=== PATIENT | female | born 1960 | race Caucasian/White ===

== ENCOUNTER 2016-10-05 12:58 | Emergency (ER) | payer MEDICAID ==
[2016-10-05] MEDS ORDERED: Sodium Chloride 0.9% 10 ML Syringe FLUSH PRN (15:53)
[2016-10-05] MEDS ORDERED: Aspirin 81 MG Tab.Chew PO ONE (15:53)
--- NOTE | 2016-10-05 16:06 | EDM.PDOC ---
ED HPI GENERAL MEDICAL PROBLEM - General Chief Complaint: Respiratory Problem Stated Complaint: TROUBLE BREATHING IN, PAIN Time Seen by Provider: 10/05/16 15:50 Source of Information: Reports: Patient, RN Notes Reviewed History Limitations: Reports: No Limitations - History of Present Illness INITIAL COMMENTS - FREE TEXT/NARRATIVE: Patient arrives here by POV with complaint of left lower chest wall pain that began yesterday and is much worse today. Pain is worse with lying supine and with deep breathing. Patient states that she had an abnormal chest x-ray a couple of weeks ago followed by a CT scan, which had some inflammatory changes but no sign of malignancy. Patient states that a couple of weeks ago she had a long car drive approximately [address] and then was only out of town 1 day and had a return drive the following day. Upon completing the long car trip she had right calf pain and swelling, which is now improved but now she has developed chest pain and was worried about problems with her heart or possible pulmonary embolism. Denies cough, fever, chills or wheezing. Location: Reports: Chest Quality: Reports: Ache Severity: Severe Improves with: Reports: None Worsens with: Reports: None Associated Symptoms: Reports: No Other Symptoms Left Chest Pain Score (Numeric/FACES): 2 - Related Data Allergies Allergy/AdvReac Type Severity Reaction Status Date / Time No Known Allergies Allergy Verified 10/05/16 15:45 Home Meds: Home Meds Chlorthalidone [Chlorthalidone] 25 mg PO DAILY 10/05/16 [History] Levothyroxine 75 mcg PO DAILY 10/05/16 [History] amLODIPine [Norvasc] 10/05/16 [History] ED ROS GENERAL - Review of Systems Review Of Systems: ROS reveals no pertinent complaints other than HPI. ED EXAM, GENERAL - Physical Exam Exam: See Below Exam Limited By: No Limitations General Appearance: Alert, WD/WN, No Apparent Distress Head: Atraumatic, Normocephalic Neck: Normal Inspection, Supple, Non-Tender, Full Range of Motion Respiratory/Chest: Other (Tender to palpation at left anterior lower chest. ) Cardiovascular: Normal Peripheral Pulses, Regular Rate, Rhythm, No Edema, No Gallop, No JVD, No Murmur, No Rub GI/Abdominal: Normal Bowel Sounds, Soft, Non-Tender, No Organomegaly, No Distention, No Abnormal Bruit, No Mass (Female) Exam: Deferred Rectal (Female) Exam: Deferred Back Exam: Normal Inspection, Full Range of Motion, NT Extremities: Normal Inspection, Normal Range of Motion, Non-Tender, Normal Capillary Refill, No Pedal Edema Neurological: Alert, Oriented, CN II-XII Intact, Normal Cognition, Normal Gait, Normal Reflexes, No Motor/Sensory Deficits Psychiatric: Normal Affect, Normal Mood Skin Exam: Warm, Dry, Intact, Normal Color, No Rash EKG INTERPRETATION EKG Date: 10/05/16 Time: 15:56 Rhythm: Other (sinus rhythm) Rate (Beats/Min): 74 [place]: Normal P-Wave: Present QRS: Normal ST-T: Other (borderline T abnormalities, inferior leads.) QT: Normal Course - Vital Signs Last Recorded V/S: Last Vital Signs Temp 36.7 C 10/05/16 15:40 Pulse 85 10/05/16 15:40 Resp 16 10/05/16 15:40 BP 161/86 H 10/05/16 15:40 Pulse Ox 99 10/05/16 15:40 - Orders/Labs/Meds Orders: Active Orders 24 hr Category Date Time Status EKG 12 Lead [EKG Documentation Completion] [] STAT Care 10/05/16 15:53 Active Peripheral IV Care [RC] . DIRECTED Care 10/05/16 15:53 Active Sodium Chloride 0.9% [Saline Flush] Med 10/05/16 15:53 Active 10 ml FLUSH ASDIRECTED PRN Peripheral IV Insertion Adult [OM.PC] Stat Oth 10/05/16 15:53 Ordered Medication Orders Sodium Chloride (Saline Flush) 10 ml FLUSH ASDIRECTED PRN PRN Reason: Keep Vein Open Last Admin: 10/05/16 17:51 Dose: 10 ml Labs: Laboratory Tests 10/05/16 10/05/16 10/05/16 Range/Units 16:09 16:09 16:09 WBC 8.8 (5.0-10.0) 10^3/uL RBC 4.89 (4.2-5.4) 10^6/uL Hgb 15.3 (12.0-16.0) g/dL Hct 45.2 (37.0-47.0) % MCV 92.4 (80-100) fL MCH 31.3 (27.0-34.0) pg MCHC 33.8 (33.0-35.0) g/dL Plt Count 329 (150-450) 10^3/uL Neut % (Auto) 54.1 (42.2-75.2) % Lymph % (Auto) 32.5 (20.5-50.1) % Yates % (Auto) 8.0 (2-8) % Eos % (Auto) 4.9 H (1.0-3.0) % Baso % (Auto) 0.5 (0.0-1.0) % D-Dimer, Quantitative 125 (0-400) ng/mL Sodium 139 (135-145) mmol/L Potassium 3.8 (3.6-5.0) mmol/L Chloride 104 (101-111) mmol/L Carbon Dioxide 22.0 (21.0-31.0) mmol/L Anion Gap 16.8 BUN 15 (7-18) mg/dL Creatinine 0.7 (0.6-1.3) mg/dL Est Cr Clr Drug Dosing 79.34 mL/min Estimated GFR (MDRD) > 60 BUN/Creatinine Ratio 21.42 Glucose 88 (74-105) mg/dL Calcium 9.4 (8.4-10.2) mg/dl Total Bilirubin 0.5 (0.2-1.0) mg/dL AST 22 (10-42) IU/L ALT 18 (10-60) IU/L Alkaline Phosphatase 91 (42-121) IU/L Troponin I < 0.02 (0.00-0.02) ng/ml Total Protein 7.3 (6.7-8.2) g/dl Albumin 4.3 (3.2-5.5) g/dl Globulin 3.0 Albumin/Globulin Ratio 1.43 Amylase 55 (28-100) U/L Lipase 21 L (22-51) U/L Urine Color (YELLOW) Urine Appearance (CLEAR) Urine pH (5.0-9.0) Ur Specific [place] (1.005-1.030) Urine Protein (NEGATIVE) Urine Glucose (UA) (NEGATIVE) Urine Ketones (NEGATIVE) Urine Occult Blood (NEGATIVE) Urine Nitrite (NEGATIVE) Urine Bilirubin (NEGATIVE) Urine Urobilinogen (0.2-1.0) mg/dL Ur Leukocyte Esterase (NEGATIVE) Urine RBC /HPF Urine WBC (0-5/HPF) /HPF Ur Epithelial Cells /HPF Amorphous Sediment (0/HPF) /HPF Urine Bacteria (0-FEW/HPF) /HPF Urine Mucus /LPF 10/05/16 Range/Units 16:14 WBC (5.0-10.0) 10^3/uL RBC (4.2-5.4) 10^6/uL Hgb (12.0-16.0) g/dL Hct (37.0-47.0) % MCV (80-100) fL MCH (27.0-34.0) pg MCHC (33.0-35.0) g/dL Plt Count (150-450) 10^3/uL Neut % (Auto) (42.2-75.2) % Lymph % (Auto) (20.5-50.1) % Yates % (Auto) (2-8) % Eos % (Auto) (1.0-3.0) % Baso % (Auto) (0.0-1.0) % D-Dimer, Quantitative (0-400) ng/mL Sodium (135-145) mmol/L Potassium (3.6-5.0) mmol/L Chloride (101-111) mmol/L Carbon Dioxide (21.0-31.0) mmol/L Anion Gap BUN (7-18) mg/dL Creatinine (0.6-1.3) mg/dL Est Cr Clr Drug Dosing mL/min Estimated GFR (MDRD) BUN/Creatinine Ratio Glucose (74-105) mg/dL Calcium (8.4-10.2) mg/dl Total Bilirubin (0.2-1.0) mg/dL AST (10-42) IU/L ALT (10-60) IU/L Alkaline Phosphatase (42-121) IU/L Troponin I (0.00-0.02) ng/ml Total Protein (6.7-8.2) g/dl Albumin (3.2-5.5) g/dl Globulin Albumin/Globulin Ratio Amylase (28-100) U/L Lipase (22-51) U/L Urine Color Yellow (YELLOW) Urine Appearance Slightly cloudy (CLEAR) Urine pH 5.5 (5.0-9.0) Ur Specific [place] 1.015 (1.005-1.030) Urine Protein Negative (NEGATIVE) Urine Glucose (UA) Negative (NEGATIVE) Urine Ketones Negative (NEGATIVE) Urine Occult Blood Negative (NEGATIVE) Urine Nitrite Negative (NEGATIVE) Urine Bilirubin Negative (NEGATIVE) Urine Urobilinogen 0.2 (0.2-1.0) mg/dL Ur Leukocyte Esterase Negative (NEGATIVE) Urine RBC 0-5 /HPF Urine WBC 0-5 (0-5/HPF) /HPF Ur Epithelial Cells Moderate H /HPF Amorphous Sediment Rare (0/HPF) /HPF Urine Bacteria Few (0-FEW/HPF) /HPF Urine Mucus Rare /LPF Meds: Medications Generic Name Dose Route Start Last Admin Trade Name Freq PRN Reason Stop Dose Admin Sodium Chloride 10 ml 10/05/16 15:53 10/05/16 17:51 Saline Flush FLUSH 10 ml ASDIRECTED PRN Administration Keep Vein Open Discontinued Medications Generic Name Dose Route Start Last Admin Trade Name Freq PRN Reason Stop Dose Admin Aspirin 324 mg 10/05/16 15:53 10/05/16 16:42 Aspirin PO 10/05/16 15:54 324 mg ONETIME ONE Administration Azithromycin 500 mg 10/05/16 17:37 10/05/16 17:53 Zithromax PO 10/05/16 17:38 500 mg ONETIME ONE Administration Ceftriaxone Sodium 1 gm/ 50 mls @ 100 mls/hr 10/05/16 17:36 10/05/16 17:53 Sodium Chloride IV 10/05/16 18:05 100 mls/hr ONETIME ONE Administration Methylprednisolone Sodium Succinate 125 mg 10/05/16 17:36 10/05/16 17:50 Solu-Medrol IVPUSH 10/05/16 17:37 125 mg ONETIME ONE Administration - Radiology Interpretation Free Text/Narrative:: Chest x-ray: No lung mass, hilar lymphadenopathy or other focal lobar consolidation No pneumothorax. See rad report. Departure - Departure Time of Disposition: 18:27 Disposition: Home, Self-Care 01 Condition: Fair Clinical Impression: Pneumonitis, Pleurodynia - Discharge Information Instructions: Pneumonitis, Pleurodynia Forms: ED Department Discharge Additional Instructions: RX: Zithromax 500mg. RX: Prednisone 20mg. Follow up in clinic this week with your primary doctor. Return to ER if worse. - My Orders Last 24 Hours: My Active Orders 10/05/16 15:53 EKG 12 Lead [EKG Documentation Completion] [RC] STAT Peripheral IV Care [RC] . DIRECTED Sodium Chloride 0.9% [Saline Flush] 10 ml FLUSH ASDIRECTED PRN Peripheral IV Insertion Adult [OM.PC] Stat - Assessment/Plan Last 24 Hours: My Active Orders 10/05/16 15:53 EKG 12 Lead [EKG Documentation Completion] [RC] STAT Peripheral IV Care [RC] . DIRECTED Sodium Chloride 0.9% [Saline Flush] 10 ml FLUSH ASDIRECTED PRN Peripheral IV Insertion Adult [OM.PC] Stat
[2016-10-05 16:37] LABS: CHLORIDE,CL 104 mmol/L (101-111); SODIUM,NA 139 mmol/L (135-145)
--- NOTE | 2016-10-05 16:42 | CR ---
Clinical history: 55-year-old female emergency department with chest pain. Interpretation: Abnormal. Asymmetric patchy lingular and left lower lobe atelectasis/infiltrate i.e. pneumonic like consolidat ion, increased since CT scan chest 05 October 2016. Developing pneumonitis? Technique (poor inspiratio n)? Less than optimal inspiratory effort but normal cardiac silhouette without cephalization of flow or signs of alveolar edema. No lung mass, hilar lymphadenopathy or other focal lobar consolidation. No pneumothorax.
[2016-10-05] MEDS ORDERED: methylPREDNISolone Sodium Succinate 125 MG/2 ML SDV IVPUSH ONE (17:36)
[2016-10-05] MEDS ORDERED: cefTRIAXone 1 GM in Sodium Chloride 0.9% 50 ML IV ONE (17:36)
[2016-10-05] MEDS ORDERED: Azithromycin 250 MG Tab PO ONE (17:37)
[2016-10-05 18:51] VITALS: BP 146/94
--- NOTE | 2016-10-07 11:17 | EKG ---
10/05/2016- VIC JORDAN - EKG per my reading shows sinus rhythm at a rate of [address] changes. [facility] /[id number]
== END 2016-10-05 18:51 | disposition home or self-care (01) ==
LOC: DL.ED 12:58
DX: J18.9 Pneumonia, unspecified organism (principal); R07.81 Pleurodynia
CPT/HCPCS: 36415; 71020; 80053; 81001; 82150; 83690; 84484; 85025; 85379; 93005; 96365; 96375; 99285; A9270; J0696; J2930; J7050

== ENCOUNTER 2017-05-17 18:38 | Emergency (ER) | payer MEDICAID ==
[2017-05-17 19:25] VITALS: BP 146/93
--- NOTE | 2017-05-17 20:37 | EDM.PDOC ---
ED HPI GENERAL MEDICAL PROBLEM - General Chief Complaint: Skin Complaint Stated Complaint: [id number] HIVES ALL OVER HEAD Time Seen by Provider: 05/17/17 20:28 Source of Information: Reports: Patient History Limitations: Reports: No Limitations - History of Present Illness INITIAL COMMENTS - FREE TEXT/NARRATIVE: itching on scalp wednesday, back on wednesday, tonight behind ears, no new soaps lotions, etc. 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 below) - Related Data Allergies Allergy/AdvReac Type Severity Reaction Status Date / Time Penicillins Allergy Hives Verified 05/17/17 19:30 Home Meds: Home Meds Levothyroxine 75 mcg PO DAILY 10/05/16 [History] Past Medical History HEENT History: Reports: Impaired Vision Cardiovascular History: Reports: Hypertension, Other (See Below) Other Cardiovascular History: not taking meds at this time, stress related Respiratory History: Reports: Other (See Below) Other Respiratory History: seasonal allergies Gastrointestinal History: Reports: Cholelithiasis 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: Reports: Polycystic Ovaries, Musculoskeletal History: Reports: Arthritis, Fracture Endocrine/Metabolic History: Reports: Hypothyroidism - Past Surgical History HEENT Surgical History: Reports: Tonsillectomy GI Surgical History: Reports: Cholecystectomy Female Surgical History: Reports: Breast Biopsy, Section, Oophorectomy, Other (See Below) Other Female Surgeries/Procedures: uterine fibroid, right ovary removed Social & Family History - Tobacco Use Smoking Status *Q: Never Smoker Second Hand Smoke Exposure: No - Caffeine Use Caffeine Use: Reports: Coffee - Recreational Drug Use Recreational Drug Use: No ED ROS GENERAL - Review of Systems Review Of Systems: ROS reveals no pertinent complaints other than HPI. ED EXAM, SKIN/RASH Exam: See Below Exam Limited By: No Limitations General Appearance: Alert, No Apparent Distress Eye Exam: Bilateral Eye: EOMI Ears: Normal External Exam Nose: Normal Inspection. No: Nasal Swelling, Nasal Drainage Throat/Mouth: Normal Inspection, Normal Lips, No Airway Compromise Respiratory/Chest: No Respiratory Distress, Lungs Clear, Normal Breath Sounds Cardiovascular: Normal Peripheral Pulses, Regular Rate, Rhythm Extremities: Normal Inspection Neurological: Alert, Oriented Psychiatric: Normal Affect, Normal Mood Skin: Warm, Dry, Erythema ( mild generalized redness to posterior scalp, patchy left aprietal, redness beind bilateral ears.) Course - Vital Signs Last Recorded V/S: Last Vital Signs Temp 98.1 F 05/17/17 19:23 Pulse 102 H 05/17/17 19:23 Resp 16 05/17/17 19:23 BP 146/93 H 05/17/17 19:23 Pulse Ox 94 L 05/17/17 19:23 - Orders/Labs/Meds Meds: Medications Discontinued Medications Generic Name Dose Route Start Last Admin Trade Name Bernie PRN Reason Stop Dose Admin Hydroxyzine HCl 25 mg 05/17/17 20:40 05/17/17 20:48 Atarax PO 05/17/17 20:41 25 mg ONETIME ONE Administration Prednisone 20 mg 05/17/17 20:40 05/17/17 20:48 Prednisone PO 05/17/17 20:41 20 mg ONETIME ONE Administration Departure - Departure Time of Disposition: 20:37 Disposition: Home, Self-Care 01 Condition: Fair Clinical Impression: Atopic dermatitis Qualifiers: Atopic dermatitis type: unspecified Qualified Code(s): L20.9 - Atopic dermatitis, unspecified - Discharge Information Instructions: Hives, [id number] Forms: ED Department Discharge Additional Instructions: hydroxyzine 25mg one every 6 hours as needed for itching #20 Prednisone 10mg x 3 day, 5mg x 3 days OTC Pepcid (Famotadine) 20mg daily for one week then as needed, Follow up if not improving or breathing difficulty
[2017-05-17] MEDS ORDERED: hydrOXYzine HCl 25 MG Tab PO ONE (20:40)
[2017-05-17] MEDS ORDERED: predniSONE 20 MG Tab PO ONE (20:40)
== END 2017-05-17 20:50 | disposition home or self-care (01) ==
LOC: DL.ED 18:38
DX: L20.9 Atopic dermatitis, unspecified (principal); I10 Essential (primary) hypertension; E03.9 Hypothyroidism, unspecified; Z88.0 Allergy status to penicillin; Z79.899 Other long term (current) drug therapy
CPT/HCPCS: 99282; A9270

== ENCOUNTER 2021-02-07 08:15 | Emergency (ER) | payer MEDICAID ==
[2021-02-07 08:24] VITALS: BP 140/77; PULSE 80
--- NOTE | 2021-02-07 09:36 | CR ---
PROCEDURE INFORMATION: Exam: XR Left Femur Exam date and time: 02/07/2021 8:41 AM Age: 60 years old Clinical indication: Pain; Hip and thigh; Left; Additional info: Injury, pain TECHNIQUE: Imaging protocol: XR Left femur. Views: 2 views. COMPARISON: No relevant prior studies available. FINDINGS: Bones/joints: Yoon-Stieda suspected at the medial knee. No acute fracture. Soft tissues: Unremarkable. IMPRESSION: No acute findings.
[2021-02-07] MEDS ORDERED: Acetaminophen/HYDROcodone 325-10 MG Tab PO ONE ×2 (10:14→12:02)
--- NOTE | 2021-02-07 10:22 | EDM.PDOC ---
ED HPI GENERAL MEDICAL PROBLEM - General Chief Complaint: Lower Extremity Injury/Pain Stated Complaint: AMBULANCE Time Seen by Provider: 02/07/21 10:05 Source of Information: Reports: Patient History Limitations: Reports: No Limitations - History of Present Illness INITIAL COMMENTS - FREE TEXT/NARRATIVE: This 60 yo female patient was brought to the ED by [facility] due to left posterior thigh pain. The patient reports she was trying to get firewood out of her laundry room when she slipped on her left leg. The patient reports she did partial splits and heard a "pop". After the fall, the patient crawled to her cellphone to call for the ambulance. The patient reports she has been taking some medications for lower back pain over the past couple of days. The patient denies any loss of consciousness before, during or after the fall. The patient reports most of the pain is to her posterior lower left thigh increased with movement. 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, Other Medication(s) Left Upper Posterior Leg Pain Score (Numeric/FACES): 3 - Related Data Allergies Allergy/AdvReac Type Severity Reaction Status Date / Time Penicillins Allergy Hives Verified 02/07/21 08:16 Home Meds: Home Meds Levothyroxine 75 mcg PO DAILY 10/05/16 [History] Cyclobenzaprine [Flexeril] 10 mg PO TID PRN 02/07/21 [History] Past Medical History HEENT History: Reports: Impaired Vision Cardiovascular History: Reports: Hypertension, Other (See Below) Other Cardiovascular History: not taking meds at this time, stress related Respiratory History: Reports: Other (See Below) Other Respiratory History: seasonal allergies Gastrointestinal History: Reports: Cholelithiasis 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: 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, Musculoskeletal History: Reports: Arthritis, Fracture Endocrine/Metabolic History: Reports: Hypothyroidism - Past Surgical History HEENT Surgical History: Reports: Tonsillectomy GI Surgical History: Reports: Cholecystectomy Female Surgical History: Reports: Breast Biopsy, Section, Oophorectomy, Other (See Below) Other Female Surgeries/Procedures: uterine fibroid, right ovary removed Social & Family History - Tobacco Use Tobacco Use Status *Q: Never Tobacco User Second Hand Smoke Exposure: No - Caffeine Use Caffeine Use: Reports: Coffee, Tea - Recreational Drug Use Recreational Drug Use: No Review of Systems - Review of Systems Review Of Systems: Comprehensive ROS is negative, except as noted in HPI. ED EXAM, GENERAL - Physical Exam Exam: See Below Exam Limited By: No Limitations General Appearance: Alert, WD/WN, Moderate Distress Eye Exam: Bilateral Eye: EOMI, Normal Inspection, PERRL Ears: Normal External Exam, Normal Canal, Hearing Grossly Normal, Normal TMs Nose: Normal Inspection, Normal Mucosa, No Blood Throat/Mouth: Normal Inspection, Normal Lips, Normal Teeth, Normal Gums, Normal Oropharynx, Normal Voice, No Airway Compromise Head: Atraumatic, Normocephalic Neck: Normal Inspection, Supple, Non-Tender, Full Range of Motion Respiratory/Chest: No Respiratory Distress, Lungs Clear, Normal Breath Sounds, No Accessory Muscle Use, Chest Non-Tender Cardiovascular: Normal Peripheral Pulses, Regular Rate, Rhythm, No Edema, No Gallop, No JVD, No Murmur, No Rub GI/Abdominal: Normal Bowel Sounds, Soft, Non-Tender, No Organomegaly, No Distention, No Abnormal Bruit, No Mass (Female) Exam: Deferred Rectal (Female) Exam: Deferred Back Exam: Normal Inspection, Full Range of Motion, NT Extremities: Leg Pain (left posterior lower thigh tenderness) Neurological: Alert, Oriented, CN II-XII Intact, Normal Cognition, Normal Gait, Normal Reflexes, No Motor/Sensory Deficits Psychiatric: Normal Affect, Normal Mood Skin Exam: Warm, Dry, Intact, Normal Color, No Rash Lymphatic: No Adenopathy Course - Vital Signs Last Recorded V/S: Last Vital Signs Temp 97.5 F 02/07/21 08:17 Pulse 80 02/07/21 08:17 Resp 16 02/07/21 08:17 BP 140/77 02/07/21 08:17 Pulse Ox 96 02/07/21 08:17 - Orders/Labs/Meds Orders: Active Orders 24 hr Category Date Time Status Acetaminophen/HYDROcodone [D[place]e 325-10 MG] Med 02/07/21 10:14 Once 1 tab PO ONETIME ONE - Re-Assessments/Exams Free Text/Narrative Re-Assessment/Exam: 02/07/21 11:32 The patient reports her pain has moved up her posterior thigh. The patient reports she is very warm and would like to be discharged. Departure - Departure Time of Disposition: 11:33 Disposition: Home, Self-Care 01 Condition: Fair Clinical Impression: Left hamstring muscle strain Qualifiers: Encounter type: initial encounter Qualified Code(s): S76.312A - Strain of muscle, fascia and tendon of the posterior muscle group at thigh level, left thigh, initial encounter - Discharge Information *PRESCRIPTION DRUG MONITORING PROGRAM REVIEWED*: Not Applicable Instructions: Muscle Strain, [id number], Hamstring Strain Care Plan Goals: The patient was advised of the examination and x-ray results during the visit. The patient was given an oral dose of [place]arte while in the Ed. The patient was discharged with a script for Duarte () #8 to take 1 by mouth every 6 hours as needed. If the patient has any additional symptoms or concerns, the patient has any additional symptoms or concerns, the patient should either return to the emergency department or visit her primary care facility. Sepsis Event Note (ED) - Evaluation Sepsis Screening Result: No Definite Risk - Focused Exam Vital Signs: Vital Signs Temp Pulse Resp BP Pulse Ox 02/07/21 08:17 97.5 F 80 16 140/77 96 - My Orders Last 24 Hours: My Active Orders 02/07/21 10:14 Acetaminophen/HYDROcodone [[place] 325-10 MG] 1 tab PO ONETIME ONE - Assessment/Plan Last 24 Hours: My Active Orders 02/07/21 10:14 Acetaminophen/HYDROcodone [[place] 325-10 MG] 1 tab PO ONETIME ONE
== END 2021-02-07 12:24 | disposition home or self-care (01) ==
LOC: DL.ED 08:15
DX: S76.312A Strain of muscle, fascia and tendon of the posterior muscle group at thigh level, left thigh, initial encounter (principal); E03.9 Hypothyroidism, unspecified; Z88.0 Allergy status to penicillin; Z79.899 Other long term (current) drug therapy; W01.0XXA Fall on same level from slipping, tripping and stumbling without subsequent striking against object, initial encounter; Y92.009 Unspecified place in unspecified non-institutional (private) residence as the place of occurrence of the external cause
CPT/HCPCS: 99284-25; A9270-GY

== ENCOUNTER 2024-06-17 19:03 | Emergency (ER) | payer BC ==
[2024-06-17 20:03] VITALS: BP 152/88; PULSE 73
== END 2024-06-17 20:07 | disposition home or self-care (01) ==
LOC: DL.ED 19:03
DX: G43.909 Migraine, unspecified, not intractable, without status migrainosus (principal); I10 Essential (primary) hypertension; E03.9 Hypothyroidism, unspecified; M19.90 Unspecified osteoarthritis, unspecified site; Z88.0 Allergy status to penicillin; Z79.890 Hormone replacement therapy; Z79.899 Other long term (current) drug therapy; Z90.49 Acquired absence of other specified parts of digestive tract
CPT/HCPCS: 99283

== ENCOUNTER 2024-06-19 10:20 | Emergency (ER) | payer BC ==
[2024-06-19] MEDS ORDERED: Sodium Chloride 0.9% 10 ML Syringe FLUSH PRN (10:36)
[2024-06-19] MEDS: Magnesium Sulf/Wat 2 GM/50 mL 2 GM in Premix Bag 1 BAG IV ONE (11:34)
[2024-06-19] MEDS: Metoclopramide 10 MG/2 ML SDV IVPUSH ONE (11:34)
[2024-06-19] MEDS: diphenhydrAMINE 50 MG/ML SDV IVPUSH ONE (11:34)
[2024-06-19] MEDS: Ketorolac 30 MG/ML SDV IVPUSH ONE (11:34)
[2024-06-19 11:50] VITALS: BP 154/94; PULSE 67
== END 2024-06-19 12:19 | disposition home or self-care (01) ==
LOC: DL.ED 10:20
DX: G43.809 Other migraine, not intractable, without status migrainosus (principal); Z88.0 Allergy status to penicillin; E03.9 Hypothyroidism, unspecified; Z79.890 Hormone replacement therapy; Z90.49 Acquired absence of other specified parts of digestive tract; Z79.899 Other long term (current) drug therapy
CPT/HCPCS: 70450; 96365; 96375; 99283; 99284-25; J1200; J1885; J2765; J3475

== ENCOUNTER 2024-10-09 14:30 | Emergency (ER) | payer BC, MEDICAID ==
[2024-10-09] MEDS ORDERED: Sodium Chloride 0.9% 10 ML Syringe FLUSH PRN (14:52)
[2024-10-09 15:03] LABS: BASOPHILS PERCENT AUTO 0.2 % (0.0-1.0); EOSINOPHILS PERCENT AUTO 0.9 % (1.0-3.0); LYMPHOCYTES PERCENT AUTO 21.7 % (20.5-50.1); MONOCYTES PERCENT AUTO 8.5 % (2-8); NEUTROPHILS PERCENT AUTO 68.7 % (42.2-75.2); PLATELET COUNT,PLT 340 10^3/uL (150-450); RED BLOOD CELL COUNT 4.39 10^6/uL (4.2-5.4); WHITE BLOOD CELL COUNT,WBC 8.2 10^3/uL (5.0-10.0)
[2024-10-09 15:10] LABS: INR 0.9 (0.9-1.2); PTT,PARTIAL THROMBOPLSTIN TIME 23.9 SEC (22.0-34.0)
[2024-10-09 15:14] LABS: A/G RATIO 1.6; ALANINE AMINOTRANSFERASE,ALT 29.0 U/L (14-59); ASPARTATE AMNIOTRANSFERASE,AST 19.0 U/L (15-37); BILIRUBIN TOTAL 0.3 mg/dL (0.2-1.0); BLOOD UREA NITROGEN,BUN 10.0 mg/dL (7-18); CARBON DIOXIDE,CO2 28.0 mmol/L (21-32); CHLORIDE,CL 103.0 mmol/L (98-107); CREATININE 0.8 mg/dL (0.55-1.02); EST CRCL DRUG DOSING (CG) 70.9 mL/min; GLUCOSE RANDOM 109.0 mg/dL (70-99); POTASSIUM,K 3.7 mmol/L (3.5-5.1); PROTEIN TOTAL,TP 7.2 g/dL (6.4-8.2); SODIUM,NA 139.0 mmol/L (136-145)
[2024-10-09 15:15] LABS: ESTIMATED GFR 83.0 mL/min (>=60)
[2024-10-09 17:38] VITALS: BP 125/103; PULSE 81
== END 2024-10-09 17:31 | disposition home or self-care (01) ==
LOC: DL.ED 14:30
DX: R07.89 Other chest pain (principal); F41.9 Anxiety disorder, unspecified; I10 Essential (primary) hypertension; E03.9 Hypothyroidism, unspecified; Z88.0 Allergy status to penicillin; Z79.899 Other long term (current) drug therapy; Z86.16 Personal history of COVID-19; Z79.890 Hormone replacement therapy
CPT/HCPCS: 36415; 71045; 80053; 83735; 84484; 85025; 85610; 85730; 93005; 99285; A9270; 93010; 99284

== ENCOUNTER 2024-12-01 15:39 | Emergency (ER) | payer MEDICAID ==
[2024-12-01] MEDS ORDERED: Sodium Chloride 0.9% 10 ML Syringe FLUSH PRN (15:52)
[2024-12-01 16:09] LABS: BASOPHILS PERCENT AUTO 0.3 % (0.0-1.0); EOSINOPHILS PERCENT AUTO 1.9 % (1.0-3.0); LYMPHOCYTES PERCENT AUTO 24.5 % (20.5-50.1); MONOCYTES PERCENT AUTO 7.9 % (2-8); NEUTROPHILS PERCENT AUTO 65.4 % (42.2-75.2); PLATELET COUNT,PLT 293 10^3/uL (150-450); RED BLOOD CELL COUNT 4.28 10^6/uL (4.2-5.4); WHITE BLOOD CELL COUNT,WBC 9.6 10^3/uL (5.0-10.0)
[2024-12-01 16:31] LABS: A/G RATIO 1.2; ALANINE AMINOTRANSFERASE,ALT 21 U/L (14-59); ASPARTATE AMNIOTRANSFERASE,AST 14 U/L (15-37); BILIRUBIN TOTAL 0.3 mg/dL (0.2-1.0); BLOOD UREA NITROGEN,BUN 15 mg/dL (7-18); CARBON DIOXIDE,CO2 26 mmol/L (21-32); CHLORIDE,CL 105 mmol/L (98-107); CREATININE 0.89 mg/dL (0.55-1.02); EST CRCL DRUG DOSING (CG) 84.06 mL/min; ESTIMATED GFR 73 mL/min (>=60); GLUCOSE RANDOM 115 mg/dL (70-99); POTASSIUM,K 3.8 mmol/L (3.5-5.1); PROTEIN TOTAL,TP 7.1 g/dL (6.4-8.2); SODIUM,NA 141 mmol/L (136-145)
[2024-12-01] MEDS: Ketorolac 30 MG/ML SDV IVPUSH ONE (16:35)
[2024-12-01 16:40] VITALS: BP 155/92; PULSE 92
== END 2024-12-01 17:05 | disposition home or self-care (01) ==
LOC: DL.ED 15:39
DX: F43.9 Reaction to severe stress, unspecified (principal); I10 Essential (primary) hypertension; E03.9 Hypothyroidism, unspecified; Z86.16 Personal history of COVID-19; Z90.49 Acquired absence of other specified parts of digestive tract; Z88.0 Allergy status to penicillin; Z79.890 Hormone replacement therapy; Z79.899 Other long term (current) drug therapy
CPT/HCPCS: 36415; 80053; 82947; 83735; 84484; 85025; 86140; 93005; 96374; 99285; J1885; 93010; 99283